=== PATIENT | male | born 1995 | race Two or more races ===

== ENCOUNTER 2017-06-08 16:32 | Emergency (ER) | payer OTHER ==
[~2017-06-08] VITALS: Ht 167.6 cm; Wt 59.9 kg
[2017-06-08] MEDS ORDERED: TETANUS-DIPTH-ACEL PERTUSSIS 0.5ML SYRG IM ONE (19:15)
[2017-06-08] MEDS ORDERED: HYDROcodone-ACET 10/325MG TAB PO ONE (19:30)
[2017-06-08 20:40] VITALS: BP 137/68
[2017-06-08] MEDS ORDERED: IBUPROFEN 800 MG TAB PO ONE (21:08)
== END 2017-06-08 22:03 | disposition home or self-care (01) ==
LOC: ER 16:38
DX: S42.031A Displaced fracture of lateral end of right clavicle, initial encounter for closed fracture (principal); S50.01XA Contusion of right elbow, initial encounter; S50.311A Abrasion of right elbow, initial encounter; V29.9XXA Motorcycle rider (driver) (passenger) injured in unspecified traffic accident, initial encounter; Y93.I9 Activity, other involving external motion; Y92.488 Other paved roadways as the place of occurrence of the external cause; Y99.8 Other external cause status
CPT/HCPCS: 29105; 73000; 73070; 90471; 90715